=== PATIENT | male | born 1985 | race Caucasian/White ===

== ENCOUNTER 2016-07-17 16:21 | Emergency (ER) | payer OTHER ==
[2016-07-17] MEDS ORDERED: IBUPROFEN 800 MG TAB As Ordered ONE (17:35)
--- NOTE | 2016-07-17 18:10 | REPUSA ---
Clinical statement: Trauma Technique: Contiguous noncontrast transaxial 2.[address] images were obtained through the cervical spin e. Reconstructions were then created in the axial plane at 1.25 mm from which reformations were gener ated in the coronal and sagittal planes to assess spinal alignment. Comparison: None Findings: No acute fracture, dislocation, or suspicious lesion. Mild posterior C6-T2 spurring with mild T1-T2 d isc space narrowing. No spondylolisthesis. Odontoid process is intact. The neck soft tissues and airways are unremarkable with no hematoma or swelling. Impression: No acute fracture.
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
--- NOTE | 2016-07-17 18:33 | EDDOCDS ---
Physician Documentation [facility] Name: Kevin Meier Age: 30 yrs Sex: Male : 1985 Arrival Date: 07/17/2016 Time: 16:21 Bed TR8 Private MD: [facility] Disposition: 07/17/16 18:14 Discharged to Home/Self Care. Impression: Sprain of ligaments of cervical spine, Sprain of shoulder joint. - Condition is Stable. - Discharge Instructions: Cervical Sprain. - Prescriptions for Ibuprofen 800 mg Oral Tablet - take 1 tablet by ORAL route every 8 hours As needed take with food; 30 tablet. Zanaflex 4 mg Oral Tablet - take 1 tablet by ORAL route every 8 hours As needed; 20 tablet. - Medication Reconciliation, Local Pharmacy Hours form. - Follow up: [facility]; When: 2 - 3 days; Reason: Continuance of care. Follow up: Emergency Department; When: As needed; Reason: Worsening of conditions. - Problem is new. - Symptoms have improved. Historical: - Allergies: No known drug Allergies; - Home Meds: 1. ibuprofen 200 mg Oral tab 2 tabs every 4 hours as needed (Last dose: 07/17/2016 07:00) 2. naproxen 250 mg Oral tab 1 tab every 6 hours as needed (Last dose: 07/17/2016 09:00) - PMHx: none; - PSHx: wisdom teeth; - Social history: Smoking status: Patient states former smoker of tobacco. No barriers to communication noted, The patient speaks fluent Turkmen. - Family history: Not pertinent. - : The pt / caregiver states he / she is not on anticoagulants. Home medication list is obtained from the patient. - Exposure Risk Screening:: None identified. Vital Signs: 07/17 16:24 BP 139 / 83; Pulse 63; Resp 18; Temp 98.6(O); Pulse Ox 99% on R/A; Weight 102.06 kg / lr2 225 lbs (R); Height 5 ft. 10 in. (177.80 cm) (R); Pain 3/10; 16:24 Body Mass Index 32.28 (102.06 kg, 177.80 cm) lr2 MDM: 17:27 Financial registration complete. gb 17:32 Ibuprofen 800 mg PO once ordered. dk1 17:32 CT Spine,Cervical W/o Contrast Ordered. EDMS 17:32 [facility] Payment Agreement was scanned into [employer] and attached to record. gb 17:33 Shoulder, Complete Ordered. EDMS Administered Medications: 17:38 Drug: Ibuprofen 800 mg Route: PO; [facility] Signatures: Dispatcher [employer] EDMS Juany Carroll, RN RN [facility] Sofi Aldridge, Reg Reg gb Chon Nixon, PA-C PA-C dk1 Eva Thornton RN RN [facility] The chart was reviewed and I authenticate all verbal orders and agree with the evaluation and treatment provided.Attachments: 17:32 [facility] Payment Agreement gb MTDD
--- NOTE | 2016-07-18 07:30 | REP ---
LEFT SHOULDER SERIES: Three views. HISTORY: Injury. FINDINGS: The left glenohumeral and acromioclavicular joints are normally aligned. Periarticular soft tissues are unremarkable. No fracture or subluxation is seen. IMPRESSION: Negative left shoulder radiographs. Signed by Jhonathan Campbell MD 07/18/2016 08:23 A
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
--- NOTE | 2016-07-19 19:33 | EDDOCDS ---
Physician Documentation [facility] Name: Kevin Meier Age: 30 yrs Sex: Male : 1985 Arrival Date: 07/17/2016 Time: 16:21 Bed TR8 Private MD: [facility] Disposition: 07/17/16 18:14 Discharged to Home/Self Care. Impression: Sprain of ligaments of cervical spine, Sprain of shoulder joint. - Condition is Stable. - Discharge Instructions: Cervical Sprain. - Prescriptions for Ibuprofen 800 mg Oral Tablet - take 1 tablet by ORAL route every 8 hours As needed take with food; 30 tablet. Zanaflex 4 mg Oral Tablet - take 1 tablet by ORAL route every 8 hours As needed; 20 tablet. - Medication Reconciliation, Local Pharmacy Hours form. - Follow up: [facility]; When: 2 - 3 days; Reason: Continuance of care. Follow up: Emergency Department; When: As needed; Reason: Worsening of conditions. - Problem is new. - Symptoms have improved. Historical: - Allergies: No known drug Allergies; - Home Meds: 1. ibuprofen 200 mg Oral tab 2 tabs every 4 hours as needed (Last dose: 07/17/2016 07:00) 2. naproxen 250 mg Oral tab 1 tab every 6 hours as needed (Last dose: 07/17/2016 09:00) - PMHx: none; - PSHx: wisdom teeth; - Social history: Smoking status: Patient states former smoker of tobacco. No barriers to communication noted, The patient speaks fluent Thai. - Family history: Not pertinent. - : The pt / caregiver states he / she is not on anticoagulants. Home medication list is obtained from the patient. - Exposure Risk Screening:: None identified. Vital Signs: 07/17 16:24 BP 139 / 83; Pulse 63; Resp 18; Temp 98.6(O); Pulse Ox 99% on R/A; Weight 102.06 kg / lr2 225 lbs (R); Height 5 ft. 10 in. (177.80 cm) (R); Pain 3/10; 18:38 BP 128 / 75; Pulse 57; Resp 16; Temp 98.8; Pulse Ox 99% ; Pain 1/10; cjh 16:24 Body Mass Index 32.28 (102.06 kg, 177.80 cm) lr2 MDM: 17:27 Financial registration complete. gb 17:32 Ibuprofen 800 mg PO once ordered. dk1 17:32 CT Spine,Cervical W/o Contrast Ordered. EDMS 17:32 [facility] Payment Agreement was scanned into [employer] and attached to record. gb 17:33 Shoulder, Complete Ordered. EDMS 22:38 T-Sheet-- Draft Copy was scanned into [employer] and attached to record. klr Administered Medications: 17:38 Drug: Ibuprofen 800 mg Route: PO; [facility] Signatures: Dispatcher [employer] EDMS Juany Carroll, RN RN Sofi Quevedo, Reg Reg gb Chon Nixon, PAAmarjit PAAmarjit dk1 Eva ThorntonRN RN [facility] Sophia Hanson klr The chart was reviewed and I authenticate all verbal orders and agree with the evaluation and treatment provided.Attachments: 17:32 [facility] Payment Agreement gb 22:38 T-Sheet-- Draft Copy klr Chart Complete MTDD
--- NOTE | 2016-07-19 19:33 | EDDOCDS ---
Physician Documentation [facility] Name: Kevin Meier Age: 30 yrs Sex: Male : 1985 Arrival Date: 07/17/2016 Time: 16:21 Bed TR8 Private MD: [facility] Disposition: 07/17/16 18:14 Discharged to Home/Self Care. Impression: Sprain of ligaments of cervical spine, Sprain of shoulder joint. - Condition is Stable. - Discharge Instructions: Cervical Sprain. - Prescriptions for Ibuprofen 800 mg Oral Tablet - take 1 tablet by ORAL route every 8 hours As needed take with food; 30 tablet. Zanaflex 4 mg Oral Tablet - take 1 tablet by ORAL route every 8 hours As needed; 20 tablet. - Medication Reconciliation, Local Pharmacy Hours form. - Follow up: [facility]; When: 2 - 3 days; Reason: Continuance of care. Follow up: Emergency Department; When: As needed; Reason: Worsening of conditions. - Problem is new. - Symptoms have improved. Historical: - Allergies: No known drug Allergies; - Home Meds: 1. ibuprofen 200 mg Oral tab 2 tabs every 4 hours as needed (Last dose: 07/17/2016 07:00) 2. naproxen 250 mg Oral tab 1 tab every 6 hours as needed (Last dose: 07/17/2016 09:00) - PMHx: none; - PSHx: wisdom teeth; - Social history: Smoking status: Patient states former smoker of tobacco. No barriers to communication noted, The patient speaks fluent Korean. - Family history: Not pertinent. - : The pt / caregiver states he / she is not on anticoagulants. Home medication list is obtained from the patient. - Exposure Risk Screening:: None identified. Vital Signs: 07/17 16:24 BP 139 / 83; Pulse 63; Resp 18; Temp 98.6(O); Pulse Ox 99% on R/A; Weight 102.06 kg / lr2 225 lbs (R); Height 5 ft. 10 in. (177.80 cm) (R); Pain 3/10; 18:38 BP 128 / 75; Pulse 57; Resp 16; Temp 98.8; Pulse Ox 99% ; Pain 1/10; cjh 16:24 Body Mass Index 32.28 (102.06 kg, 177.80 cm) lr2 MDM: 17:27 Financial registration complete. gb 17:32 Ibuprofen 800 mg PO once ordered. dk1 17:32 CT Spine,Cervical W/o Contrast Ordered. EDMS 17:32 [facility] [place] Payment Agreement was scanned into [employer] and attached to record. gb 17:33 Shoulder, Complete Ordered. EDMS 22:38 T-Sheet-- Draft Copy was scanned into [employer] and attached to record. klr Administered Medications: 17:38 Drug: Ibuprofen 800 mg Route: PO; [facility] Signatures: Dispatcher [employer] EDMS Juany Carroll, RN RN Sofi Quevedo, Reg Reg gb Chon Nixon, PAAmarjit PAAmarjit dk1 Eva ThorntonRN RN [facility] Sophia Hanson klr The chart was reviewed and I authenticate all verbal orders and agree with the evaluation and treatment provided.Attachments: 17:32 [facility] Payment Agreement gb 22:38 T-Sheet-- Draft Copy klr Chart Complete MTDD
== END 2016-07-17 18:33 | disposition home or self-care (01) ==
LOC: M ED 16:21
DX: S13.4XXA Sprain of ligaments of cervical spine, initial encounter (principal); S43.402A Unspecified sprain of left shoulder joint, initial encounter; V43.92XA Unspecified car occupant injured in collision with other type car in traffic accident, initial encounter; Y92.410 Unspecified street and highway as the place of occurrence of the external cause; Y93.89 Activity, other specified; Y99.8 Other external cause status; Z87.891 Personal history of nicotine dependence

== ENCOUNTER 2017-12-20 19:43 | Emergency (ER) | payer OTHER | END 2017-12-20 22:17 | disposition home or self-care (01) | LOC: M ED 19:43 | DX: S92.425A Nondisplaced fracture of distal phalanx of left great toe, initial encounter for closed fracture (principal); W20.8XXA Other cause of strike by thrown, projected or falling object, initial encounter; Y92.9 Unspecified place or not applicable; Y93.9 Activity, unspecified; Y99.9 Unspecified external cause status; F17.228 Nicotine dependence, chewing tobacco, with other nicotine-induced disorders | CPT/HCPCS: 73660 ==

== ENCOUNTER 2018-03-07 08:24 | Emergency (ER) | payer MEDICAID, OTHER, SELFPAY ==
[2018-03-07 09:11] LABS: ANION GAP 7 MEQ/L (8-16); BLOOD UREA NITROGEN 17 MG/DL (7-18); CALCIUM LEVEL 9.8 MG/DL (8.5-10.1); CARBON DIOXIDE LEVEL 29 MEQ/L (21-32); CHLORIDE LEVEL 106 MEQ/L (98-107); CREATININE FOR GFR 1.03 MG/DL (0.70-1.30); GLOMERULAR FILTRATION RATE > 60.0 (>60); GLUCOSE, FASTING 91 MG/DL (70-100); POTASSIUM SERUM 4.6 MEQ/L (3.5-5.1); SODIUM LEVEL 142 MEQ/L (136-145)
== END 2018-03-07 10:49 | disposition home or self-care (01) ==
LOC: M ED 08:24
DX: M79.601 Pain in right arm (principal); Z79.899 Other long term (current) drug therapy
CPT/HCPCS: 93971

== ENCOUNTER → 2019-11-22 | Outpatient (CLI) | payer MEDICAID ==
[~2019-11-22] MED LIST: NAPR-885 PO
--- NOTE | 2019-11-28 12:16 | SLEEPHOME ---
DATE OF STUDY: 11/22/2019 ORDERED BY: Jhonathan Ernst Diagnostic home sleep testing was performed due to concern for the obstructive sleep apnea syndrome. For testing, a nocturnal T3 respiratory monitoring device was used. Continuous record was made of pulse, oxygen saturation, airflow, chest and abdominal strain and body position. 9 hours and 59 minutes of data were reviewed. There were only for 4 hours and 49 minutes marked as time in bed, however, during this interval, 70 respiratory events were identified of 10 seconds in duration or greater for a respiratory event index of 14.5 per hour. The events were primarily obstructive. Baseline pulse rate 73, pulse rate ranged 53-109. Baseline saturation was 92%, saturations fell down to 80%. Testing was performed in both the supine and nonsupine positions. IMPRESSION: Abnormal home sleep testing with repetitive respiratory events and oxygen desaturations to 80% with a respiratory event index of 14.5 is consistent with the obstructive sleep apnea syndrome. RECOMMENDATION: The patient should be encouraged to undergo formal sleep evaluation.
== END ==
LOC: M SLEEP HO 10:56
PROVIDERS: ATTEND Physician Assistant
DX: G47.10 Hypersomnia, unspecified (principal)

== ENCOUNTER → 2022-04-13 | Outpatient (REF) | payer OTHER | LOC: M LAB REF 16:19 | PROVIDERS: ATTEND Physician Assistant Medical | DX: J02.9 Acute pharyngitis, unspecified (principal) ==

== ENCOUNTER 2024-10-19 21:55 | Emergency (ER) | payer OTHER ==
[~2024-10-19] VITALS: Ht 182.9 cm; Wt 109.1 kg
[2024-10-19 22:00] VITALS: BP 155/92; TEMP 97.3; O2SAT 98
== END 2024-10-20 02:05 | disposition home or self-care (01) ==
LOC: M ED 21:55
DX: S90.32XA Contusion of left foot, initial encounter (principal); W20.8XXA Other cause of strike by thrown, projected or falling object, initial encounter; Y92.008 Other place in unspecified non-institutional (private) residence as the place of occurrence of the external cause; Y93.9 Activity, unspecified; Y99.9 Unspecified external cause status